=== PATIENT | male | born 1980 | race Caucasian/White ===

== ENCOUNTER 2018-12-08 20:14 | Emergency (ER) | payer MEDICAID ==
[~2018-12-08] VITALS: Ht 180.3 cm; Wt 96.6 kg
[2018-12-08 20:23] VITALS: BP_SYST 128
[2018-12-08 21:23] VITALS: BP_SYST 128
== END 2018-12-08 21:23 | disposition home or self-care (01) ==
LOC: SED 20:14
DX: J01.90 Acute sinusitis, unspecified (principal); R03.0 Elevated blood-pressure reading, without diagnosis of hypertension; F17.210 Nicotine dependence, cigarettes, uncomplicated; Z71.6 Tobacco abuse counseling
CPT/HCPCS: 99283

== ENCOUNTER 2019-02-03 17:13 | Emergency (ER) | payer SELFPAY ==
[~2019-02-03] VITALS: Ht 180.3 cm; Wt 93.0 kg
[2019-02-03 17:28] VITALS: BP_SYST 162
--- NOTE | 2019-02-03 17:33 | NUR ---
Placed in room 03 . Placed on digital account director, blood pressure machine and pulse oximeter. To gown for exam. Side rails up.
--- NOTE | 2019-02-03 17:37 | NUR ---
Pt AAOx4 ambulated into ED c/o 01/29 headache x 8 days. Pt has been taking tylenol and motrin with no relief. Skin pink dry and warm, breathing even and unlabored. No other injuries/complaints per pt/noted. Will continue to monitor.
--- NOTE | 2019-02-03 17:40 | NUR ---
ER Dr. Pascal at bedside examining patient.
[2019-02-03] MEDS ORDERED: DIPHENHYDRAMINE INJ 50 MG/ML VIAL IM ONE (17:45)
[2019-02-03] MEDS ORDERED: KETOROLAC TROMETHAMINE 30 MG VIAL IVP ONE (17:45)
[2019-02-03] MEDS ORDERED: ONDANSETRON HCL 4 MG/2 ML VIAL IM ONE (17:45)
--- NOTE | 2019-02-03 18:17 | NUR ---
Medication administered. PT tolerated well. No adverse reactions noted.
[2019-02-03] MEDS ORDERED: cloNIDine HCL 0.1 MG TABLET PO ONE (18:30)
[2019-02-03 18:51] VITALS: BP_SYST 145
--- NOTE | 2019-02-03 18:52 | NUR ---
Patient given written and verbal discharge instructions and verbalizes understanding. ER MD discussed with patient the results and treatment provided. Patient in stable condition. ID arm band removed. Rx of Tylenol, Lisinopril given. Patient educated on pain management and to follow up with PMD. Pain Scale 0. Opportunity for questions provided and answered. Medication side effect fact sheet provided.
[2019-02-04] MEDS ORDERED: LIDOCAINE 1%, 20 ML MDV 20 ML ONE (07:47)
== END 2019-02-03 18:51 | disposition home or self-care (01) ==
LOC: SED 17:13
DX: G44.209 Tension-type headache, unspecified, not intractable (principal); I10 Essential (primary) hypertension
CPT/HCPCS: 96372; 99283; J1200; J1885; J2405; J2001

== ENCOUNTER 2019-07-26 13:49 | Emergency (ER) | payer SELFPAY | END 2019-07-26 15:00 | disposition home or self-care (01) | LOC: SED 13:49 | DX: J03.90 Acute tonsillitis, unspecified (principal) | CPT/HCPCS: 99283 ==

== ENCOUNTER 2019-10-23 17:28 | Emergency (ER) | payer SELFPAY ==
[~2019-10-23] VITALS: Ht 180.3 cm; Wt 99.8 kg
[2019-10-23 17:42] VITALS: BP_SYST 153
--- NOTE | 2019-10-23 18:14 | NUR ---
Pt AAOx4 ambulated into ED c/o vesicle to abdomen and L upper torso x last night possibly r/t bug bite. No discharge/redness present. No other injuries/complaints per pt/noted. Will continue to monitor.
--- NOTE | 2019-10-23 18:14 | NUR ---
plcPatient to ER bed ch2 for evaluation. Side rails up.
--- NOTE | 2019-10-23 18:14 | NUR ---
ER SHEILA Giraldo examining patient.
--- NOTE | 2019-10-23 18:15 | NUR ---
Received report from Nuzhat, no acute distress noted. Will continue to monitor pt.
[2019-10-23] MEDS ORDERED: DIPH-TET-PERTUS Vaccine 0.5 ML VIAL (ADACEL) I.M. ONE (18:30)
--- NOTE | 2019-10-23 18:40 | NUR ---
Patient given written and verbal discharge instructions and verbalizes understanding. ER MD discussed with patient the results and treatment provided. Patient in stable condition. ID arm band removed. Rx of benadryl,mupirocin,doxycycline given. Patient educated on pain management and to follow up with PMD. Pain Scale 0. Opportunity for questions provided and answered. Medication side effect fact sheet provided.
== END 2019-10-23 18:40 | disposition home or self-care (01) ==
LOC: SED 17:28
DX: S20.362A Insect bite (nonvenomous) of left front wall of thorax, initial encounter (principal); F12.90 Cannabis use, unspecified, uncomplicated; W57.XXXA Bitten or stung by nonvenomous insect and other nonvenomous arthropods, initial encounter; Y93.89 Activity, other specified; Y92.89 Other specified places as the place of occurrence of the external cause; Y99.8 Other external cause status
CPT/HCPCS: 90715; 99283

== ENCOUNTER 2020-07-15 09:07 | Emergency (ER) | payer MEDICAID ==
[~2020-07-15] VITALS: Ht 180.3 cm; Wt 106.6 kg
[2020-07-15 09:13] VITALS: BP_SYST 148
[2020-07-15 10:10] VITALS: BP_SYST 141
== END 2020-07-15 10:10 | disposition home or self-care (01) ==
LOC: SED 09:07
DX: M54.5 Low back pain (principal); X50.0XXA Overexertion from strenuous movement or load, initial encounter; Y93.89 Activity, other specified; Y92.89 Other specified places as the place of occurrence of the external cause; Y99.8 Other external cause status
CPT/HCPCS: 72100-TC; 81002; 99283

== ENCOUNTER 2021-02-05 19:34 | Emergency (ER) | payer MEDICAID ==
[~2021-02-05] VITALS: Ht 180.3 cm; Wt 108.0 kg
[2021-02-05 19:40] VITALS: BP_SYST 158
--- NOTE | 2021-02-05 19:40 | NUR ---
PT TO BED 2 FOR EVALUATION. REPORT GIVEN TO JAMESON ELIAS WHO WILL ASSUME CARE.
--- NOTE | 2021-02-05 20:11 | NUR ---
CALM, ALERT, RESP UNLABORED, SKIN WARM AND DRY. COMMUNICATES CLEARLY IN FULL COMPLETE SENTECES
--- NOTE | 2021-02-05 20:13 | NUR ---
DR FERNÁNDEZ IN TO ASSESS
[2021-02-05] MEDS ORDERED: AMOX500C2 PO (20:24)
[2021-02-05] MEDS ORDERED: AMOXICILLIN 500 MG CAPSULE PO ONE (20:30)
--- NOTE | 2021-02-05 20:42 | NUR ---
Patient given written and verbal discharge instructions and verbalizes understanding. ER MD discussed with patient the results and treatment provided. Patient in stable condition. ID arm band removed. Rx of AMOXICILLIN given. Patient educated on pain management and to follow up with PMD. Pain Scale 0/10 Opportunity for questions provided and answered. Medication side effect fact sheet provided.
[2021-02-05 20:43] VITALS: BP_SYST 141
== END 2021-02-05 20:42 | disposition home or self-care (01) ==
LOC: SED 19:34
DX: K04.7 Periapical abscess without sinus (principal)
CPT/HCPCS: 99283

== ENCOUNTER 2022-02-07 12:39 | Emergency (ER) | payer MEDICAID ==
[~2022-02-07] VITALS: Ht 180.3 cm; Wt 103.0 kg
[~2022-02-07 12:39] MED LIST: AMOX500C2 PO
[2022-02-07 12:40] VITALS: BP_SYST 150
[2022-02-07 13:25] LABS: HEMOGLOBIN 13.7 g/dL (14.0-18.0); RED CELL DISTRIBUTION WIDTH 14.4 % (9.0-15.0)
[2022-02-07 13:35] LABS: ANION GAP 9 (5-15); CALCIUM 7.7 mg/dL (8.4-11.0); CHLORIDE 104 mmol/L (98-107); CREATININE 1.02 mg/dL (0.55-1.30); GLUCOSE 99 mg/dL (70-99); POTASSIUM 3.8 mmol/L (3.5-5.1); SODIUM SERUM 137 mmol/L (136-145); UREA NITROGEN, BLOOD 19 mg/dL (8-21)
[2022-02-07 13:36] LABS: HEMATOCRIT 39.6 % (36-54); MEAN CORPUSCULAR HEMOGLOBIN 33 pg (27-31); MEAN CORPUSCULAR HGB CONC 35 % (32-36); MEAN CORPUSCULAR VOLUME 95 fL (79.0-98.0); PLATELET COUNT (AUTO) 210 K/uL (130-430); RED BLOOD CELL COUNT(AUTO) 4.15 MIL/uL (4.2-6.2); WHITE BLOOD COUNT (AUTO) 3.6 K/uL (4.8-10.8)
[2022-02-07 13:39] LABS: GFR AFRICAN AMERICAN 104 mL/min (>90)
[2022-02-07 13:47] LABS: ALANINE AMINOTRANSFERASE 38 U/L (12-78); ALBUMIN 3.7 g/dL (3.4-4.8); ASPARTATE AMINOTRANSFERASE 34 U/L (10-37); TOTAL BILIRUBIN 0.1 mg/dL (0.0-1.0)
[2022-02-07 14:09] LABS: BASOPHILS % (MANUAL) 0 % (0-2); EOSINOPHILS % (MANUAL) 7 % (0-7); LYMPHOCYTES % (MANUAL) 30 % (20-46); MONOCYTES % (MANUAL) 5 % (0-11)
[2022-02-07 16:15] VITALS: BP_SYST 153
== END 2022-02-07 16:15 | disposition home or self-care (01) ==
LOC: SED 12:39
DX: R07.89 Other chest pain (principal); E11.9 Type 2 diabetes mellitus without complications; E78.5 Hyperlipidemia, unspecified; I10 Essential (primary) hypertension; F17.200 Nicotine dependence, unspecified, uncomplicated
CPT/HCPCS: 36415; 71045; 80053; 84484; 85007; 85027; 93005; 99285